=== PATIENT | male | born 1960 | race Caucasian/White ===

== ENCOUNTER 2021-07-19 14:33 | Outpatient (RCR) | payer BC, SELFPAY ==
[2021-07-19 15:05] VITALS: BP 153/92; PULSE 68; TEMP 36.6
[2021-07-19 15:42] VITALS: BMI 33.7
--- NOTE | 2021-07-19 16:54 | PCM.WC.HP ---
History of Present Illness Date of Service: 07/19/21 Chief Complaint: Nonhealing ulcer left lower extremity status post cellulitis October 2020 History of Wound: Patient is a 61-year-old male presenting to the wound center for treatment of a nonhealing ulcer to his left lower extremity. He has a past medical history as listed above. In October 2020 the patient was treated for cellulitis, and stated that since then it has never fully healed, with the skin being very fragile and breaking open easily. The patient denies pain to this area or any current signs or symptoms of infection. He states that he has used DuoDERM in the past, and got this from his PCP last week, and left it on for 1 week continuously until this appointment. He has a past medical history of type 2 diabetes with his last A1c at 6.8. The patient is unsure if he has had venous studies done in the past. Past medical, family, and social history reviewed and not pertinent to the current visit and all other systems reviewed and negative with exception of those listed above. [facility] Medical History (Updated 07/19/21 @ 17:05 by Cristobal Remy NP, [employer]) Bilateral lower extremity edema CAD (coronary artery disease) Diabetes Heart disease Hypercholesteremia Hyperlipidemia Nonhealing ulcer of left lower extremity with fat layer exposed Obesity Obesity Type 2 diabetes mellitus Umbilical hernia Varicose veins of bilateral lower extremities with other complications Home Medications Testosterone 11/28/14 [History Last Taken Unknown] metformin 500 mg PO DAILY 11/28/14 [History Last Taken Unknown] oxycodone-acetaminophen 1 tab PO Q6H PRN PRN #16 tab 11/28/14 [Rx Last Taken Unknown] promethazine 25 mg PO Q8H PRN PRN #16 tab 11/28/14 [Rx Last Taken Unknown] rosuvastatin 10 mg PO DAILY 11/28/14 [History Last Taken Unknown] tamsulosin 0.4 mg PO DAILY #3 cap 11/28/14 [Rx Last Taken Unknown] bupropion HCl 100 mg tablet,12 hr sustained-release 100 mg PO QDAY tab 10/28/17 [History Last Taken Unknown] Celontin 07/19/21 [History Last Taken Unknown] aspirin [Aspir-81] 81 mg PO DAILY 07/19/21 [History Last Taken Unknown] coenzyme Q10 [Co Q-10] 30 mg PO DAILY 07/19/21 [History Last Taken Unknown] empagliflozin [Jardiance] 10 mg PO DAILY 07/19/21 [History Last Taken Unknown] potassium 07/19/21 [History Last Taken Unknown] potassium mg PO 07/19/21 [History Last Taken Unknown] Allergy/AdvReac Type Severity Reaction Status Date / Time zinc AdvReac Vomiting Verified 10/28/17 15:09 Family History Father Diabetes Hypertension Skin cancer Brother Diabetes Hypertension Hypercholesterolemia Surgical History History of coronary artery stent placement History of umbilical hernia repair (~09/17/07) Social History (Updated 10/28/17 @ 15:[address] Aknur Kearney MD) Smoking Status: Former smoker alcohol intake: current alcohol intake frequency: a few times a month substance use type: does not use ROS Constitutional Constitutional: Reports systems reviewed and no addt'l complaints, except as documented Eyes Eyes: Reports systems reviewed and no addt'l complaints, except as documented ENT HEENT: Reports systems reviewed and no addt'l complaints, except as documented Cardiovascular Cardiovascular: Reports systems reviewed and no addt'l complaints, except as documented Respiratory/Chest Respiratory/Chest: Reports systems reviewed and no addt'l complaints, except as documented Gastrointestinal Gastrointestinal: Reports systems reviewed and no addt'l complaints, except as documented Genitourinary Genitourinary: Reports systems reviewed and no addt'l complaints, except as documented Musculoskeletal Musculoskeletal: Reports systems reviewed and no addt'l complaints, except as documented Integumentary Integumentary: Reports systems reviewed and no addt'l complaints, except as documented Neurologic Neurologic: Reports systems reviewed and no addt'l complaints, except as documented Psychiatric Psychiatric: Reports systems reviewed and no addt'l complaints, except as documented Endocrine Endocrinology: Reports systems reviewed and no addt'l complaints, except as documented Hematologic/Lymphatic Hematologic/Lymphatic: Reports systems reviewed and no addt'l complaints, except as documented Allergic/Immunologic Allergic/Immunologic: Reports systems reviewed and no addt'l complaints, except as documented Vital Signs Vital Signs Vital Signs: 07/19/21 15:05 Temperature 97.8 F Temperature Source Temporal Pulse Rate 68 Blood Pressure 153/92 H Blood Pressure Mean 112 Blood Pressure Source Monitor Weight Weight: 270 lb 3.969 oz Body Mass Index (BMI) 33.7 Physical Exam Const alert, oriented x3, no apparent distress, healthy appearing and well nourished General Appearance: cooperative Exam Limitations: no limitations Nutritional Appearance: obese HEENT normocephalic Head and Scalp: normal to inspection Mouth: oral and palatal mucosa normal Eyes General Eye: normal appearance of both eyes Resp normal respiratory effort, normal air movement and no use of accessory muscles Effort and Inspection: able to speak in complete sentences Auscultation: clear to auscultation bilaterally Cardio regular rate, regular rhythm, S1 normal heart sound, S2 normal heart sound, no murmurs and peripheral pulses 2+ throughout Palpation: normal PMI Rate: regular rate Heart Sounds: S1 normal and S2 normal GI normal to inspection, nondistended, normoactive bowel sounds, soft to palpation, non-tender and non-distended Palpation: soft Extremity normal to inspection and full ROM General Extremity: normal exam except as noted Skin Wound Narrative: Nonhealing ulcer to left lower extremity with adherent slough, there is chronic venous changes present with varicosities present to bilateral lower extremities as well. 1+ pitting edema bilateral lower extremities. Neuro oriented x3 and moves all extremities Sensorium / Orientation: awake, alert, oriented to person, oriented to place and oriented to time Psych mental status grossly normal, thought process normal and denies hallucinations Appearance: grossly normal Attitude: calm Activity / Motor Behavior: appropriate eye contact Speech: normal speech Thought Process: normal thought process Thought Content: normal thought content Attention / Concentration: attention grossly intact Insight: insight good Judgement: judgement good Debridement Note Debridement Note Wound debrided: Nonhealing ulcer to left lower extremity Laterality: Left Type of Debridement: Excisional debridement Anesthesia Used: 5% Lidocaine Gel Depth: in the subcutaneous layer Percentage of wound debrided: 100 Instrument Used: 3mm curette Tissue Removed: Slough and devitalized tissue Severity: Fat Layer Exposed Amount of bleeding with debridement: Mild Bleeding Controlled with: Pressure Patient tolerated procedure: Patient tolerated procedure well Post-Debridement Measurements and Additional Note: Post-Debridement Measurements/Treatment JUNIE - Nurse 1 - General Ulcer Assessment Start: 07/19/21 15:04 Freq: Status: Active Protocol: ISIS Activity Type Activity Date Activity User E-Sign Co-Sign Detail Recorded Client Recorded Date Recorded By Document 07/19/21 15:05 AK [id number] 07/19/21 15:20 AK Document 07/19/21 15:42 AK [id number] 07/19/21 15:44 AK 07/19/21 07/19/21 15:05 15:42 WC - Today's Visit Information Finger Stick Blood Sugar(mg/dl) (if 130 indicated): Blood Sugar Stated by Patient Height and Weight Height 6 ft 3 in Weight 270 lb 3.969 oz Weight in Pounds 270.2 lbs Weight Measurement Method Estimated by Patient Body Mass Index (BMI) 33.7 BMI Classification Obese BSA - Joshua 2.49 Vital Signs Temperature (97.8 F-99.1 F) 97.8 F Temperature Source Temporal Pulse Rate (60-100) 68 Pulse Location Monitor Blood Pressure (90/60-120/80) 153/92 H Blood Pressure Mean 112 Source Monitor History Since Last Visit- (Skip if this is Patient's initial visit) Left Footwear Regular Shoe Right Footwear Regular Shoe Communication Assessment Preferred language Citizen Of [place] Able to Read Yes Able to Write Yes Right Hearing Abillity Normal Visual Assistive Devices None Culture/Christian/Glaze Supervisor Cultural/Christian Needs that may affect No Treatment Plan Would you allow our hospital nut sifter to Yes meet you for the purpose of spiritual/ emotional support? WC - Nurse 1 - General Ulcer Measurement Start: 07/19/21 15:04 Freq: Status: Active Protocol: Activity Type Activity Date Activity User E-Sign Co-Sign Detail Recorded Client Recorded Date Recorded By Document 07/19/21 15:05 AK [id number] 07/19/21 15:20 FL 07/19/21 15:05 Wound Center Nurse 1 #1 Left duran -Combined with other wound No -Current Size (cm) - Length 3 -Current Size (cm) - Width 2.6 -Current Size (cm) - Depth 0.1 -Total Square Cm 7.8 -Date of Last Picture (Recall this 07/19/21 field) -Photo Taken Yes -Tunneling No -Undermining/Tunneling No -Circular Undermining No -Classification - Thickness Partial Thickness -Exudate Amt Medium -Exudate Type Serosanguineous -Wound Margin Well Defined, Not Attached -Granulation Amt Medium (34-66%) -Granulation Quality Red -Slough/Fibrin Yes -Necrosis Amt Medium (34-66%) -Necrotic Tissue Type Adherent Slough -Structure Exposed N/A -Texture (Ester-wound Skin Appearance) Assessed, Excoriation -Moisture (Ester-wound Skin Appearance) No Abnormality, Assessed -Color (Ester-wound Skin Appearance) No Abnormality, Assessed -Temperature (Ester-wound Skin No Abnormality Appearance) (Pt Warm) -Tenderness on Palpation (Ester-wound No Skin Appearance) -Ulcer Cleansing Rinsed/ Irrigated with Saline -Foul Odor after Cleansing No -Anesthetic Used 5% Lidocaine Gel Lower Limb Edema Present Yes Left Calf (cm) 44 Left Ankle (cm) 25 WC - Nurse 2 - General Ulcer CM Notes Start: 07/19/21 15:04 Freq: Status: Active Protocol: Activity Type Activity Date Activity User E-Sign Co-Sign Detail Recorded Client Recorded Date Recorded By Document 07/19/21 15:42 MW [id number] 07/19/21 15:45 MW 07/19/21 15:42 Wound Center Nurse 2 #1 Left duran -Time 15:43 -Correct Patient Yes -Correct Side, Site, Position Yes -Correct Procedure Yes -Procedure Performed Yes -Type of Procedure Debridement -Clinical Debridement Subcutaneous -Tissue Removed Subcutaneous -Post Debridement (cm) - Length 3.0 -Post Debridement (cm) - Width 0.5 -Post Debridement (cm) - Depth 0.1 -Total Square (Post) (cm) 1.50 -Area of Debridement (cm) - Length 3.0 -Area of Debridement (cm) - Width 0.5 -Total Square (Area) (cm) 1.50 -Tunneling No -Undermining/Tunneling No -Circular Undermining No -Wound/Ulcer Outcome Not Healed -Ulcer Cleansing Rinsed/ Irrigated with Saline -Foul Odor after Cleansing No -Bioengineered Tissue No -Bleeding Controlled with Pressure -Offloading No -Treatment Response Procedure Tolerated Well -Debridement - Subq, 1st 20sq cm Yes Pain Scale: 0-10 Numeric Is Patient Pain Free? Yes WC - Nurse 3 - General Ulcer D/C NN Start: 07/19/21 15:04 Freq: Status: Active Protocol: Activity Type Activity Date Activity User E-Sign Co-Sign Detail Recorded Client Recorded Date Recorded By Document 07/19/21 15:56 DL [id number] 07/19/21 15:57 DL 07/19/21 15:56 Wound Care Nurse 3 #1 Left duran -Ulcer Cleansing Wound Cleanser -Foul Odor after Cleansing No Left -Multi-Layered Wrap Application Unna Boot - Left ($) Treatment Response Procedure Tolerated Well Pain Scale: 0-10 Numeric Is Patient Pain Free? Yes WC - Visit Discharge Discharge Condition Stable Ambulatory Status Ambulatory Transportation Private Auto Charges/Coding Visit Charges Office Visits / Consults: [id number] OV L3 New Procedures Integumentary [id number]: [id number] María Elena subq tissue 20 sq cm/< Assessment/Plan Assessment/Plan (1) Nonhealing ulcer of left lower extremity with fat layer exposed: CODE(S): L97.922 - Non-pressure chronic ulcer of unspecified part of left lower leg with fat layer exposed (2) Bilateral lower extremity edema: CODE(S): R60.0 - Localized edema (3) Varicose veins of bilateral lower extremities with other complications: CODE(S): I83.893 - Varicose veins of bilateral lower extremities with other complications (4) Type 2 diabetes mellitus: CODE(S): E11.9 - Type 2 diabetes mellitus without complications (5) Obesity: CODE(S): E66.9 - Obesity, unspecified (6) CAD (coronary artery disease): CODE(S): I25.10 - Atherosclerotic heart disease of [place] coronary artery without angina pectoris (7) Hyperlipidemia: CODE(S): E78.5 - Hyperlipidemia, unspecified PLAN: Debridement performed today in clinic as annotated above. Left lower extremity Unna boot applied. At home wound-care instructions: Unna boots were applied to his left lower extremity and he will follow-up in 4 to 5 days to have these changed Compression: Unna boots Off-loading: The patient was instructed to avoid pressure and friction on the affected areas. Reposition every 2 hours at minimum. Avoid prolonged standing and/or dangling of legs. When seated, feet should be elevated at chest level. Frequent ambulation is encouraged. Diet: Patient encouraged to increase protein intake while taking caution to avoid high carbohydrate and/or sugar intake. Patient is a non-smoker Labs/cultures/imaging: Cultures held today. Routine baseline lab work held. Vascular studies held. Follow-up: Return to clinic in 1 week for re-evaluation. Return sooner or report to the emergency room should symptoms worsen, or new symptoms arise. This note was generated with [employer] dictation software. It may contain incorrect words, spelling, and punctuation that were not noted in checking the note before signing. I have spent 35 minutes today reviewing labs, records, and history. Time includes coordinating care, interpretation of tests, and counseling the patient/family. This also includes time I spent with the patient for exam, treatment plan, and education as well as documenting clinical information in the electronic health record.
== END 2021-07-19 23:59 ==
LOC: WC 14:33
PROVIDERS: PCP Family Medicine; Visit Provider Nurse Practitioner Family
DX: I83.028 Varicose veins of left lower extremity with ulcer other part of lower leg (principal); L97.822 Non-pressure chronic ulcer of other part of left lower leg with fat layer exposed; E11.622 Type 2 diabetes mellitus with other skin ulcer; R60.0 Localized edema; E78.5 Hyperlipidemia, unspecified; I25.10 Atherosclerotic heart disease of native coronary artery without angina pectoris; E66.9 Obesity, unspecified; Z79.899 Other long term (current) drug therapy; Z79.84 Long term (current) use of oral hypoglycemic drugs; Z87.891 Personal history of nicotine dependence; Z95.5 Presence of coronary angioplasty implant and graft; I83.91 Asymptomatic varicose veins of right lower extremity
CPT/HCPCS: 11042; 29580; 99203; G0463

== ENCOUNTER 2021-08-02 14:30 | Outpatient (RCR) | payer BC, SELFPAY ==
[2021-07-23 14:34] VITALS: BP 160/79; PULSE 71; TEMP 36.1
[2021-07-26 14:36] VITALS: BP 149/78; PULSE 59; TEMP 36.6
--- NOTE | 2021-07-26 15:11 | PCM.WC.PN ---
History of Present Illness Date of Service: 07/26/21 Chief Complaint: Nonhealing ulcer left lower extremity status post cellulitis October 2020 History of Wound: Patient is a 61-year-old male presenting to the wound center for treatment of a nonhealing ulcer to his left lower extremity. He has a past medical history as listed above. In October 2020 the patient was treated for cellulitis, and stated that since then it has never fully healed, with the skin being very fragile and breaking open easily. The patient denies pain to this area or any current signs or symptoms of infection. He states that he has used DuoDERM in the past, and got this from his PCP last week, and left it on for 1 week continuously until this appointment. He has a past medical history of type 2 diabetes with his last A1c at 6.8. The patient is unsure if he has had venous studies done in the past. Past medical, family, and social history reviewed and not pertinent to the current visit and all other systems reviewed and negative with exception of those listed above. Progress of Wound: Stable, no new concerns, patient did do very well with the Unna boots Objective Data Objective Data Vital Signs: Vital Signs Temp Pulse BP 97.8 F 59 L 149/78 H 07/26/21 14:36 07/26/21 14:36 07/26/21 14:36 Charges/Coding Procedures Integumentary [id number]: [id number] María Elena subq tissue 20 sq cm/< Physical Exam Const alert, oriented x3, no apparent distress, healthy appearing and well nourished General Appearance: cooperative Exam Limitations: no limitations Nutritional Appearance: obese HEENT normocephalic Head and Scalp: normal to inspection Mouth: oral and palatal mucosa normal Eyes General Eye: normal appearance of both eyes Resp normal respiratory effort, normal air movement and no use of accessory muscles Effort and Inspection: able to speak in complete sentences Auscultation: clear to auscultation bilaterally Cardio regular rate, regular rhythm, S1 normal heart sound, S2 normal heart sound, no murmurs and peripheral pulses 2+ throughout Palpation: normal PMI Rate: regular rate Heart Sounds: S1 normal and S2 normal GI normal to inspection, nondistended, normoactive bowel sounds, soft to palpation, non-tender and non-distended Palpation: soft Extremity normal to inspection and full ROM General Extremity: normal exam except as noted Skin Wound Narrative: Nonhealing ulcer to left lower extremity with adherent slough, there is chronic venous changes present with varicosities present to bilateral lower extremities as well. 1+ pitting edema bilateral lower extremities. Neuro oriented x3 and moves all extremities Sensorium / Orientation: awake, alert, oriented to person, oriented to place and oriented to time Psych mental status grossly normal, thought process normal and denies hallucinations Appearance: grossly normal Attitude: calm Activity / Motor Behavior: appropriate eye contact Speech: normal speech Thought Process: normal thought process Thought Content: normal thought content Attention / Concentration: attention grossly intact Insight: insight good Judgement: judgement good Debridement Note Debridement Note Wound debrided: Left lower extremity wound Laterality: Left Type of Debridement: Excisional debridement Anesthesia Used: 5% Lidocaine Gel Depth: in the subcutaneous layer Percentage of wound debrided: 100 Instrument Used: 5mm curette Tissue Removed: Slough and tissue Severity: Fat Layer Exposed Amount of bleeding with debridement: Mild Bleeding Controlled with: Pressure Patient tolerated procedure: Patient tolerated procedure well Post-Debridement Measurements and Additional Note: Post-Debridement Measurements/Treatment - Nurse 1 - General Ulcer Assessment Start: 07/23/21 14:33 Freq: Status: Active Protocol: WC.LOWEXT Activity Type Activity Date Activity User E-Sign Co-Sign Detail Recorded Client Recorded Date Recorded By Document 07/23/21 14:34 KR [id number] 07/23/21 14:35 KR Document 07/26/21 14:36 KR [id number] 07/26/21 14:38 KR 07/23/21 07/26/21 14:34 14:36 - Today's Visit Information Type of service Nurse-only Follow-up Visit Visit (Physician/ACCESS SERVICES ASSISTANT ) Arrival Mode Ambulatory Ambulatory Patient Identification Verified (Name & Yes Yes ) Vital Signs Temperature (97.8 F-99.1 F) 97.0 F L 97.8 F Temperature Source Temporal Temporal Pulse Rate (60-100) 71 59 L Pulse Location Monitor Monitor Blood Pressure (90/60-120/80) 160/79 H 149/78 H Blood Pressure Mean (mm Hg) 106 101 Source Monitor Monitor Position Semi-Fowlers Semi-Fowlers Blood Pressure Location Right Arm Right Arm History Since Last Visit- (Skip if this is Patient's initial visit) Have you changed medications since your No No last visit? Any new allergies or adverse reactions No No Had a fall/change in ADL's that may No No increase risk of falls Signs or symptoms of abuse and/or No No neglect since last visit Have you been in the hospital since your No No last visit? Has dressing in place as prescribed Yes Yes Has compression in place as prescribed Yes Yes Has offloadiing in place as prescribed N/A N/A Experienced any changes in pain level or No No management Left Footwear Regular Shoe Regular Shoe Right Footwear Regular Shoe Regular Shoe Pain Scale: 0-10 Numeric Is Patient Pain Free? Yes Yes WC - Nurse 1 - General Ulcer Measurement Start: 07/23/21 14:33 Freq: Status: Active Protocol: Activity Type Activity Date Activity User E-Sign Co-Sign Detail Recorded Client Recorded Date Recorded By Document 07/23/21 14:34 KR [id number] 07/23/21 14:35 KR Document 07/26/21 14:36 KR [id number] 07/26/21 14:38 KR 07/23/21 07/26/21 14:34 14:36 #1 Left duran -Current Size (cm) - Length 0.1 -Current Size (cm) - Width 0.1 -Current Size (cm) - Depth 0.1 -Total Square Cm 0.01 -Exudate Amt None Present -Wound Margin Distinct, Outline Attached -Granulation Amt Small (1-33%) -Granulation Quality [place] -Necrosis Amt None Present (0 %) -Texture (Ester-wound Skin Appearance) Assessed, Scarring -Moisture (Ester-wound Skin Appearance) No Abnormality, Assessed -Color (Ester-wound Skin Appearance) No Abnormality, Assessed -Temperature (Ester-wound Skin No Abnormality Appearance) (Pt Warm) -Tenderness on Palpation (Ester-wound No Skin Appearance) -Ulcer Cleansing Soap and Water -Foul Odor after Cleansing No -Anesthetic Used 5% Lidocaine Gel Wound Center Nurse 1 Left Calf (cm) 42.1 42.5 Left Ankle (cm) 25 25.5 WC - Nurse 2 - General Ulcer CM Notes Start: 07/23/21 14:33 Freq: Status: Active Protocol: Activity Type Activity Date Activity User E-Sign Co-Sign Detail Recorded Client Recorded Date Recorded By Document 07/26/21 14:55 MW [id number] 07/26/21 16:52 MW 07/26/21 14:55 Wound Center Nurse 2 #1 Left duran -Time 14:55 -Correct Patient Yes -Correct Side, Site, Position Yes -Correct Procedure Yes -Procedure Performed Yes -Type of Procedure Debridement -Clinical Debridement Subcutaneous -Tissue Removed Subcutaneous -Post Debridement (cm) - Length 0.1 -Post Debridement (cm) - Width 0.3 -Post Debridement (cm) - Depth 0.1 -Total Square (Post) (cm) 0.03 -Area of Debridement (cm) - Length 0.1 -Area of Debridement (cm) - Width 0.3 -Total Square (Area) (cm) 0.03 -Tunneling No -Undermining/Tunneling No -Circular Undermining No -Wound/Ulcer Outcome Not Healed -Ulcer Cleansing Rinsed/ Irrigated with Saline -Foul Odor after Cleansing No -Bioengineered Tissue No -Bleeding Controlled with Pressure -Offloading No -Treatment Response Procedure Tolerated Well -Debridement - Subq, 1st 20sq cm Yes WC - Nurse 3 - General Ulcer D/C NN Start: 07/23/21 14:33 Freq: Status: Active Protocol: Activity Type Activity Date Activity User E-Sign Co-Sign Detail Recorded Client Recorded Date Recorded By Document 07/23/21 14:34 KR [id number] 07/23/21 14:35 KR Document 07/26/21 15:01 DL [id number] 07/26/21 15:02 DL 07/23/21 07/26/21 14:34 15:01 Vital Signs Temperature (97.8 F-99.1 F) 97.0 F L Temperature Source Temporal Pulse Rate (60-100) 71 Pulse Location Monitor Blood Pressure (90/60-120/80) 160/79 H Blood Pressure Mean (mm Hg) 106 Source Monitor Position Semi-Fowlers Blood Pressure Location Right Arm Pain Scale: 0-10 Numeric Is Patient Pain Free? Yes Yes #1 Left duran -Ulcer Cleansing Rinsed/ Irrigated with Saline -Foul Odor after Cleansing No Wound Care Nurse 3 Left -Multi-Layered Wrap Application Unna Boot - Unna Boot - Left ($) Left ($) Treatment Response Procedure Tolerated Well WC - Visit Discharge Discharge Condition Stable Stable Ambulatory Status Ambulatory Ambulatory Transportation Private Auto Private Auto Accompanied by self Assessment/Plan Assessment/Plan (1) Nonhealing ulcer of left lower extremity with fat layer exposed: CODE(S): L97.922 - Non-pressure chronic ulcer of unspecified part of left lower leg with fat layer exposed (2) Bilateral lower extremity edema: CODE(S): R60.0 - Localized edema (3) Varicose veins of bilateral lower extremities with other complications: CODE(S): I83.893 - Varicose veins of bilateral lower extremities with other complications (4) Type 2 diabetes mellitus: CODE(S): E11.9 - Type 2 diabetes mellitus without complications (5) Obesity: CODE(S): E66.9 - Obesity, unspecified (6) CAD (coronary artery disease): CODE(S): I25.10 - Atherosclerotic heart disease of [place] coronary artery without angina pectoris (7) Hyperlipidemia: CODE(S): E78.5 - Hyperlipidemia, unspecified PLAN: Debridement performed today in clinic as annotated above. Left lower extremity Unna boot applied. At home wound-care instructions: Unna boots were applied to his left lower extremity and he will follow-up in 4 to 5 days to have these changed Compression: Unna boots Off-loading: The patient was instructed to avoid pressure and friction on the affected areas. Reposition every 2 hours at minimum. Avoid prolonged standing and/or dangling of legs. When seated, feet should be elevated at chest level. Frequent ambulation is encouraged. Diet: Patient encouraged to increase protein intake while taking caution to avoid high carbohydrate and/or sugar intake. Patient is a non-smoker Labs/cultures/imaging: Cultures held today. Routine baseline lab work held. Vascular studies held. Follow-up: Return to clinic in 1 week for re-evaluation. Return sooner or report to the emergency room should symptoms worsen, or new symptoms arise. This note was generated with [employer] dictation software. It may contain incorrect words, spelling, and punctuation that were not noted in checking the note before signing. I have spent 35 minutes today reviewing labs, records, and history. Time includes coordinating care, interpretation of tests, and counseling the patient/family. This also includes time I spent with the patient for exam, treatment plan, and education as well as documenting clinical information in the electronic health record.
[2021-08-02 14:34] VITALS: BP 157/86; PULSE 71; TEMP 35.6
--- NOTE | 2021-08-02 16:30 | PCM.WC.PN ---
History of Present Illness Date of Service: 08/02/21 Chief Complaint: Nonhealing ulcer left lower extremity status post cellulitis October 2020 History of Wound: Patient is a 61-year-old male presenting to the wound center for treatment of a nonhealing ulcer to his left lower extremity. He has a past medical history as listed above. In October 2020 the patient was treated for cellulitis, and stated that since then it has never fully healed, with the skin being very fragile and breaking open easily. The patient denies pain to this area or any current signs or symptoms of infection. He states that he has used DuoDERM in the past, and got this from his PCP last week, and left it on for 1 week continuously until this appointment. He has a past medical history of type 2 diabetes with his last A1c at 6.8. The patient is unsure if he has had venous studies done in the past. Past medical, family, and social history reviewed and not pertinent to the current visit and all other systems reviewed and negative with exception of those listed above. Progress of Wound: The patient's wound has healed without any signs of infection at this time, no new concerns, patient did do very well with the Unna boots Objective Data Objective Data Vital Signs: Vital Signs Temp Pulse BP 96.0 F L 71 157/86 H 08/02/21 14:34 08/02/21 14:34 08/02/21 14:34 Charges/Coding Visit Charges Office Visits / Consults: [id number] OV L3 Est Physical Exam Const alert, oriented x3, no apparent distress, healthy appearing and well nourished General Appearance: cooperative Exam Limitations: no limitations Nutritional Appearance: obese HEENT normocephalic Head and Scalp: normal to inspection Mouth: oral and palatal mucosa normal Eyes General Eye: normal appearance of both eyes Resp normal respiratory effort, normal air movement and no use of accessory muscles Effort and Inspection: able to speak in complete sentences Auscultation: clear to auscultation bilaterally Cardio regular rate, regular rhythm, S1 normal heart sound, S2 normal heart sound, no murmurs and peripheral pulses 2+ throughout Palpation: normal PMI Rate: regular rate Heart Sounds: S1 normal and S2 normal GI normal to inspection, nondistended, normoactive bowel sounds, soft to palpation, non-tender and non-distended Palpation: soft Extremity normal to inspection and full ROM General Extremity: normal exam except as noted Skin Wound Narrative: Nonhealing ulcer to left lower extremity is now healed, there is chronic venous changes present with varicosities present to bilateral lower extremities as well. 1+ pitting edema bilateral lower extremities. Neuro oriented x3 and moves all extremities Sensorium / Orientation: awake, alert, oriented to person, oriented to place and oriented to time Psych mental status grossly normal, thought process normal and denies hallucinations Appearance: grossly normal Attitude: calm Activity / Motor Behavior: appropriate eye contact Speech: normal speech Thought Process: normal thought process Thought Content: normal thought content Attention / Concentration: attention grossly intact Insight: insight good Judgement: judgement good Assessment/Plan Assessment/Plan (1) Nonhealing ulcer of left lower extremity with fat layer exposed: CODE(S): L97.922 - Non-pressure chronic ulcer of unspecified part of left lower leg with fat layer exposed (2) Bilateral lower extremity edema: CODE(S): R60.0 - Localized edema (3) Varicose veins of bilateral lower extremities with other complications: CODE(S): I83.893 - Varicose veins of bilateral lower extremities with other complications (4) Type 2 diabetes mellitus: CODE(S): E11.9 - Type 2 diabetes mellitus without complications (5) Obesity: CODE(S): E66.9 - Obesity, unspecified (6) CAD (coronary artery disease): CODE(S): I25.10 - Atherosclerotic heart disease of [place] coronary artery without angina pectoris (7) Hyperlipidemia: CODE(S): E78.5 - Hyperlipidemia, unspecified PLAN: No debridement indicated. Cover with gauze for the next week for protection Compression: Daily application of compression stockings 20 to 30 mmHg to prevent new wounds from occurring. Off-loading: The patient was instructed to avoid pressure and friction on the affected areas. Reposition every 2 hours at minimum. Avoid prolonged standing and/or dangling of legs. When seated, feet should be elevated at chest level. Frequent ambulation is encouraged. Diet: Patient encouraged to increase protein intake while taking caution to avoid high carbohydrate and/or sugar intake. Patient is a non-smoker Follow-up: Now that the patient's wound is healed, he will be discharged today. Return sooner or report to the emergency room should symptoms worsen, or new symptoms arise. This note was generated with [employer] software. It may contain incorrect words, spelling, and punctuation that were not noted in checking the note before signing. I have spent 25 minutes today reviewing labs, records, and history. Time includes coordinating care, interpretation of tests, and counseling the patient/family. This also includes time I spent with the patient for exam, treatment plan, and education as well as documenting clinical information in the electronic health record.
== END 2021-08-02 14:46 | disposition home or self-care (01) ==
LOC: WC 14:30
PROVIDERS: PCP Family Medicine; Visit Provider Nurse Practitioner Family
DX: I83.028 Varicose veins of left lower extremity with ulcer other part of lower leg (principal); L97.812 Non-pressure chronic ulcer of other part of right lower leg with fat layer exposed; E11.622 Type 2 diabetes mellitus with other skin ulcer; I83.91 Asymptomatic varicose veins of right lower extremity; E78.5 Hyperlipidemia, unspecified; I25.10 Atherosclerotic heart disease of native coronary artery without angina pectoris; E66.9 Obesity, unspecified; R60.0 Localized edema
CPT/HCPCS: 11042; 29580; 99212; G0463